=== PATIENT | male | born 1975 | race Caucasian/White ===

== ENCOUNTER 2018-08-22 20:01 | Emergency (ER) | payer MEDICARE ==
[~2018-08-22] VITALS: Ht 152.4 cm; Wt 76.2 kg
== END 2018-08-22 22:20 | disposition home or self-care (01) ==
LOC: ER 20:01
DX: S61.215A Laceration without foreign body of left ring finger without damage to nail, initial encounter (principal); F17.210 Nicotine dependence, cigarettes, uncomplicated; Z23 Encounter for immunization; W26.0XXA Contact with knife, initial encounter
CPT/HCPCS: 12001; 90471; 90714; 99282-25